=== PATIENT | female | born 1945 | race Caucasian/White ===

== ENCOUNTER → 2021-03-14 11:11 | Outpatient (CLI) | payer MEDICARE, OTHER, SELFPAY ==
[2021-03-14 13:13] LABS: COVID19 -Nasal RAPID Negative (Negative)
== END ==
PROVIDERS: Visit Provider Student in an Organized Health Care Education/Training Program
DX: Z20.822 Contact with and (suspected) exposure to COVID-19 (principal)
CPT/HCPCS: 87635; C9803

== ENCOUNTER → 2021-03-16 07:42 | Outpatient (CLI) | payer MEDICARE, OTHER, SELFPAY ==
--- NOTE | 2021-03-16 | DI.NM.S_ITS ---
PROCEDURE: NM TRACEY PERF SPECT R&S PHARM Rest and pharmacological stress myocardial perfusion SPECT with gated imaging and ejection fraction RADIOPHARMACEUTICAL: 9.5 mCi Tc-99m tetrafosmin IV at rest and 25.5 mCi Tc-99m tetrafosmin IV at peak effect of pharmacological stress. Qce-ygl-linpsydu was performed. INDICATIONS: chest pain TECHNIQUE: Radiopharmaceutical was injected at peak stress test, and also at rest. SPECT images were obtained. SPECT myocardial perfusion images were displayed in short axis, horizontal long axis, and vertical long axis views. Gated images were reviewed using [employer] software. COMPARISON: None. CARDIAC STRESS: A pharmacologic stress test was performed under the supervision of an attending staff, using an infusion of lexiscan 0.4mg IV X1. Hemodynamic data: There is normal blood pressure and heart rate response to pharmacologic stress. Symptoms: The patient had non diagnostic chest pain and dyspnea with lexiscan. Aminophylline: none EKG: No diagnostic changes of ischemia; no ectopy. FINDINGS: Raw data: There is good myocardial uptake of radiotracer. No significant motion artifacts. Suab-xt-zrrdf ratio is 0.26 (normal is less than 0.38 for tetrafosmin tracer). Left ventricle function: Gated images demonstrate normal left ventricular wall thickening. No segmental wall motion abnormalities. No transient ischemic dilation; TID is 1.13 (normal less than 1.3). Left ventricle resting end diastolic volume is 94 mL. Left ventricle stress ejection fraction is 74%; normal range is above 45%. Myocardial perfusion: There is normal distribution of activity in the right and left ventricular myocardium. No fixed or reversible perfusion defects. IMPRESSION: Low risk, pharmaceutical nuclear stress test. 1) No perfusion evidence of ischemia or infarction. 2) Normal left ventricular size, wall motion, and systolic function (EF post stress 74%). 3) No ECG evidence of ischemia. 4) Non-diagnostic chest pain with lexiscan. 5) No prior nuclear stress test available for comparison. Dictated by: Tariq Rodriguez MD on 03/16/2021 at 16:32 Approved by: Tariq Rodriguez MD on 03/16/2021 at 16:34
--- NOTE | 2021-03-16 11:43 | PM.TREADMILL ---
Cardiac Stress Test Report Referral & Results Date Patient Seen: 03/16/21 Time Patient Seen: 11:43 Requesting provider: Eddie Parker Indication: chest pain Rest ECG: Sinus bradycardia Procedure Note: After Lexiscan injection, had minimal dyspnea with 3-4/10 chest pressure/tightness which did not increase with walking and resolved with rest No significant ST changes after Lexiscan injection No ectopy Impression: Equivocal Lexiscan stress test Nuclear images pending Please note: Actual ECG tracings can be found in the PACS system.
== END ==
PROVIDERS: PCP Internal Medicine; Referring Provider Internal Medicine; Visit Provider Internal Medicine
DX: R07.89 Other chest pain (principal)
CPT/HCPCS: 78452; 93017; A9502; J2785

== ENCOUNTER 2023-04-26 15:44 | Emergency (ER) | payer MEDICARE, OTHER, SELFPAY ==
[2023-04-26 15:52] VITALS: BP 201/99; PULSE 95; RESP 20; TEMP 36.8; O2SAT 99; BMI 22.9
--- NOTE | 2023-04-26 15:58 | DI.RAD.S_ITS ---
PROCEDURE: XR ELBOW LT MIN 3V INDICATIONS: Fall elbow pain TECHNIQUE: 3 views of the elbow were acquired. COMPARISON: None. FINDINGS: Bones: Comminuted mildly displaced intra-articular fracture of the olecranon. No additional fractures or dislocation. Soft tissues: Large joint effusion and significant soft tissue swelling. IMPRESSION: Comminuted displaced intra-articular fracture of the olecranon. Dictated by: Barrington Petersen D.O. on 04/26/2023 at 15:29 Approved by: Barrington Petersen D.O. on 04/26/2023 at 15:29
--- NOTE | 2023-04-26 19:54 | ED_ITS ---
HPI - Extremity Injury (Upper) General Chief Complaint: Extremity Injury, Upper Stated Complaint: sent by [facility] possible broken elbow Time Seen by Provider: 04/26/23 18:45 Source: patient Mode of arrival: Ambulatory History of Present Illness HPI narrative: 77-year-old female nonsmoker without chronic medical history presents with her at the request of the urgent care on [facility]. She had gotten up from bed last night and tripped and fallen onto a left elbow and suffered pain and a very small laceration. She denies any head neck or back pain. She denies prodromal symptoms such as dizziness, weakness or lightheadedness. She is had no fever or chills and denies nausea, vomiting or diarrhea. Has increased pain with range of motion and improvement with rest. She was seen at the clinic and had 2 sutures placed in a small laceration overlying her elbow and an x-ray confirming fracture at which point she was sent here Related Data Previous Rx's Medication Instructions Recorded cephalexin 500 mg capsule 500 mg PO Q6H 7 days #28 caps 04/26/23 Allergies Allergy/AdvReac Type Severity Reaction Status Date / Time Opioids - Morphine Analogues AdvReac Confusion Verified 04/26/23 19:35 Review of Systems Review of Systems Narrative: GENERAL: Denies chills, fatigue, malaise, fever, sweats. HEENT: Denies sinus pain, ear pain, sore throat, difficulty swallowing, dizziness. RESPIRATORY: Denies dyspnea, cough, wheezing, hemoptysis, sputum. CARDIOVASCULAR: Denies chest pain, palpitations, orthopnea, edema, GASTROINTESTINAL: Denies nausea, vomiting, abdominal pain, diarrhea, constipation, melena. : Denies dysuria, frequency, incontinence, hematuria, urinary retention. MUSCULOSKELETAL: See HPI SKIN: See HPI NEUROLOGIC: Denies weakness, headache, numbness, change in speech, confusion, seizures, incoordination. PSYCHIATRIC: No concerning psychosocial issues. 12 point review of systems is negative except for those stated above Patient History Social History Smoking Status: Never smoker Smoking Status: Never smoker alcohol intake frequency: a few times a week Alcohol type: wine Substance Use Type: does not use Exam Narrative Exam Narrative: GENERAL: [77] year old patient appears stated age. Well-developed patient, in mild distress. GCS 15 HEAD: Atraumatic. Normocephalic. EYES: Pupils equal round and reactive. Extraocular motions intact. No scleral icterus. No injection or drainage. ENT: Nose without bleeding, purulent drainage. Throat without erythema, tonsillar hypertrophy or exudate. Airway patent. NECK: Trachea midline. Non tender CARDIOVASCULAR: Regular rate and rhythm without murmurs, gallops, or rubs. RESPIRATORY: Clear to auscultation. Breath sounds equal bilaterally. No wheezes, rales, or rhonchi. GASTROINTESTINAL: Abdomen soft, non-tender, nondistended. EXTREMITIES: No edema or joint tenderness. BACK: Nontender without deformity or crepitance. No flank tenderness. NEURO: AOx3. SKIN: No rash or erythema of visible areas Initial Vital Signs Initial Vital Signs: Vital Signs Temperature 98.3 F 04/26/23 15:52 Pulse Rate 95 H 04/26/23 15:52 Respiratory Rate 20 04/26/23 15:52 Blood Pressure 201/99 H 04/26/23 15:52 Pulse Oximetry 99 04/26/23 15:52 Oxygen Delivery Method Room Air 04/26/23 15:52 Procedures Orthopedic Splinting/Casting Injury #1: Side: left Upper Extremity Injury Location: elbow Upper Extremity Immobilizer: sling/shoulder immobilizer and posterior splint Post splinting neuro exam: intact Post splinting vascular exam: intact Placed by: Nursing Course Orders Ordered: Discontinued Medications Cefazolin Sodium (Cephalexin 250 Mg Cap Prepack) 1 bottle MISC SEEINSTR ONE Stop: 04/26/23 19:58 Last Admin: 04/26/23 20:13 Dose: 250 mg Documented By: GC Consultations Consultation #1: Discussed with on-call orthopedist, Dr. Falcon, she has reviewed imaging and recommends posterior OCL splint with sling, suggest patient call the office Friday morning will need surgical intervention, she can be NPO after midnight tomorrow night and clear liquids up until 8:00 a.m. on Friday Vital Signs Vital signs: Vital Signs - 8 hr 04/26/23 15:52 Temperature 98.3 F Pulse Rate 95 H Respiratory Rate 20 Blood Pressure 201/99 H Pulse Oximetry 99 Oxygen Delivery Method Room Air MDM - Extremity Injury (Upper) MDM Narrative Medical decision making narrative: [77] year old patient presents with elbow pain Multiple etiologies for patient's symptoms considered including, but not limited to: [Fracture versus dislocation versus open fracture versus other] Prior Charts reviewed in our EMR Primary Historian: patient Imaging reviewed: Elbow x-ray suggest olecranon fracture Consultations: Dr. Falcon see above Patient's symptoms improved over duration of stay with above-stated therapies. She has been splinted, pain is well controlled. Given the small laceration overlying the olecranon I did add antibiotics Findings and discharge diagnosis discussed with patient/family followed by verbalization of understanding Return precautions discussed with patient/family whom verbalize understanding of diagnosis and plan Discharge Plan Departure Patient Disposition: Home Clinical Impression: Fracture of olecranon process of ulna, Laceration of elbow Instructions: DI for Elbow Fracture Activity Restrictions/Additional Instructions: *You have been diagnosed with [ left elbow fracture with small laceration] *What to do: *Please continue to take your regular medications as directed. [x ] New medication prescriptions sent to your pharmacy: [[facility] ] [ ] New medication written as a paper prescription [x] Tylenol and occasional Motrin for pain *Please follow up with [ Ezekiel] of [facility]; please call Friday, let them know that you were seen in the Emergency Department. We will electronically transmit a record of today's note if your PCP is in our system *As we discussed, this could require surgery as soon as Friday so please do not eat or drink anything after midnight tomorrow night. You may have water or black coffee up until 0800am on Friday, but nothing else until you speak with the ortho office *Return to Emergency Department if you should have any new, worsening or concerning symptoms, such as [worsening pain, significant swelling, cold extremities, numbness, tingling, weakness or other bothersome symptoms Splint Care: Keep splint clean and dry. Elevated affected body part to decrease swelling. OK to use ice pack on the affected body part. Use for 15-20 minutes each time, for 5-6x per day. If you develop worsening pain, numbness, tingling, discoloration of the affected body part, loosen the splint by loosening the ANNABEL wrap, and either see your doctor for an urgent re-assessment, or return to the Emergency Department. Return to the Emergency Department for any new or worsening symptoms. Prescriptions: New cephalexin 500 mg capsule 500 mg PO Q6H 7 Days Qty: 28 0RF Referrals: Eddie Parker MD [Primary Care Provider] - Madeline Falcon MD [Physician] - Stand Alone Forms: Patient Portal/API
[2023-04-26] MEDS: cephALEXin 250 MG CAP PREPACK 1 BOTTLE MISC (20:13)
[2023-04-26 20:46] VITALS: BP 134/70; PULSE 66; RESP 16; TEMP 36.4; O2SAT 98
== END 2023-04-26 20:45 | disposition home or self-care (01) ==
PROVIDERS: Emergency Provider Emergency Medicine; PCP Internal Medicine
DX: S52.022A Displaced fracture of olecranon process without intraarticular extension of left ulna, initial encounter for closed fracture (principal); S51.012A Laceration without foreign body of left elbow, initial encounter; W01.0XXA Fall on same level from slipping, tripping and stumbling without subsequent striking against object, initial encounter
CPT/HCPCS: 29105; 73080; 99283

== ENCOUNTER → 2023-07-21 14:39 | Outpatient (CLI) | payer MEDICARE, OTHER, SELFPAY ==
--- NOTE | 2023-07-21 14:43 | DI.RAD.S_ITS ---
PROCEDURE: XR KNEE RT 4V INDICATIONS: joint pain TECHNIQUE: 4 views of the knee were acquired. COMPARISON: None. FINDINGS: Bones: No acute fracture or dislocation identified. Severe joint space narrowing and spurring of the medial and patellofemoral compartments. Moderate lateral compartment joint space narrowing and spurring also present. Soft tissues: No joint effusion. No suspicious soft tissue calcifications. IMPRESSION: No acute fracture or dislocation identified. 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 If symptoms persist, follow-up radiographs and/or CT or MRI may be helpful for further evaluation. Dictated by: Pipe Weldon M.D. on 07/21/2023 at 18:18 Approved by: Pipe Weldon M.D. on 07/21/2023 at 18:20
== END ==
PROVIDERS: PCP Internal Medicine; Referring Provider Internal Medicine; Visit Provider Internal Medicine
DX: M25.561 Pain in right knee (principal)
CPT/HCPCS: 73564

== ENCOUNTER 2023-08-11 12:26 | Observation (INO) | payer MEDICARE, OTHER, SELFPAY ==
[2023-08-11] VITALS (16 sets, daily range): BP systolic 145–188; BP diastolic 72–124; PULSE 71–97; RESP 14–24; TEMP 35.9–36.9; O2SAT 93–100; BMI 23.2
--- NOTE | 2023-08-11 12:49 | ED.GENADULT ---
HPI - General Adult General Chief complaint: Abdominal Pain Stated complaint: intestinal blockage Time Seen by Provider: 08/11/23 12:41 Source: patient Mode of arrival: Ambulatory History of Present Illness HPI narrative: 77-year-old female has had a history of bowel obstruction in the past requiring surgery and a colectomy. She is here for evaluation approximately 3 days of worsening abdominal distention that she states feels very similar to her prior bowel obstructions. No fevers. She is not passing flatus but is having some bowel incontinence. She is having urinary incontinence as well but this is not new for her. No vomiting. No fevers. Related Data Home Medications Medication Instructions Recorded Confirmed estradiol 0.5 mg tablet 0.5 mg PO DAILY 08/11/23 08/11/23 losartan 100 mg tablet 100 mg PO DAILY 08/11/23 08/11/23 nortriptyline 10 mg capsule 10 mg PO BEDTIME 08/11/23 08/11/23 thyroid (pork) 60 mg tablet (LATIN [employer] 60 mg PO DAILY 08/11/23 08/11/23 Thyroid) trospium 60 mg capsule,extended 60 mg PO DAILY 08/11/23 08/11/23 release 24 hr Allergies Allergy/AdvReac Type Severity Reaction Status Date / Time Opioids - Morphine Analogues AdvReac Confusion Verified 04/26/23 19:35 Review of Systems Constitutional Constitutional: Reports system reviewed and no additional complaints, except as documented Gastrointestinal Gastrointestinal: Reports system reviewed and no additional complaints, except as documented Genitourinary Genitourinary: Reports system reviewed and no additional complaints, except as documented Integumentary/Breasts Skin/Breast: Reports system reviewed and no additional complaints, except as documented Neurologic Neurologic: Reports system reviewed and no additional complaints, except as documented Hematologic/Lymphatic On Anticoagulants: No Patient History Social History Smoking Status: Never smoker Smoking Status: Never smoker alcohol intake frequency: a few times a week Alcohol type: wine Substance Use Type: does not use Exam Initial Vital Signs Initial Vital Signs: Vital Signs Temperature 98.5 F 08/11/23 12:30 Pulse Rate 97 H 08/11/23 12:30 Respiratory Rate 16 08/11/23 12:30 Blood Pressure 158/72 H 08/11/23 12:30 Pulse Oximetry 96 08/11/23 12:30 Oxygen Delivery Method Room Air 08/11/23 12:30 [facility] Head: normal to inspection and normocephalic Resp Effort & Inspection: normal respiratory effort GI Inspection: distended Palpation: firm, No guarding, No rigid and tender Skin Other: Patient does have gladis in her left elbow. She recently had a hardware removal. Neuro General: patient alert and patient awake Extrem General: capillary refill normal Course Orders Ordered: ED Orders 08/11/23 12:50 CT abdomen pelvis w con Stat 08/11/23 13:10 Complete Blood Count AUTO DIFF Stat Comprehensive Metabolic Panel Stat Lactate (Lactic Acid) Stat Lipase Stat 08/11/23 15:57 Consult to General Surgery Stat Sodium Chloride (Normal Saline 0.9%) 1,000 mls @ 125 mls/hr IV CONT ABIMAEL Last Admin: 08/11/23 13:13 Dose: 125 mls/hr Documented By: EDI Discontinued Medications Al Hydrox/Mg Hydrox/Simethicone 20 ml/ Lidocaine HCl 15 ml 0 ml PO NOW ONE Stop: 08/11/23 13:52 Last Admin: 08/11/23 14:19 Dose: 35 ml Documented By: GAIL Lidocaine HCl (Lidocaine 2% (Glydo) 6 Ml Gel) 6 ml TOP NOW ONE Stop: 08/11/23 17:42 Lorazepam (Lorazepam 1 Mg Tablet) 1 mg PO NOW ONE Stop: 08/11/23 17:42 Mineral Oil (Mineral Oil 1 Each Enema) 1 each NV NOW ONE Stop: 08/11/23 15:57 Last Admin: 08/11/23 16:50 Dose: 1 each Documented By: GAIL Pantoprazole Sodium (Pantoprazole 40 Mg Vial) 40 mg IV NOW ONE Stop: 08/11/23 13:51 Last Admin: 08/11/23 14:21 Dose: 40 mg Documented By: GAIL Vital Signs Vital signs: Vital Signs - 8 hr 08/11/23 12:30 08/11/23 13:21 08/11/23 13:30 Temperature 98.5 F Pulse Rate 97 H 91 H 84 Respiratory Rate 16 20 20 Blood Pressure 158/72 H Pulse Oximetry 96 100 100 Oxygen Delivery Method Room Air Room Air Room Air 08/11/23 14:00 08/11/23 14:27 08/11/23 14:27 Temperature Pulse Rate 75 79 Respiratory Rate 18 14 Blood Pressure 154/83 H Pulse Oximetry 100 99 Oxygen Delivery Method Room Air 08/11/23 14:30 08/11/23 14:30 08/11/23 14:50 Temperature Pulse Rate 74 88 Respiratory Rate 24 20 Blood Pressure 145/78 H Pulse Oximetry 98 99 Oxygen Delivery Method Room Air 08/11/23 14:50 08/11/23 14:51 08/11/23 14:51 Temperature Pulse Rate 82 Respiratory Rate 22 Blood Pressure 159/124 H 188/95 H Pulse Oximetry 100 Oxygen Delivery Method Room Air 08/11/23 15:00 08/11/23 15:00 08/11/23 15:30 Temperature Pulse Rate 79 Respiratory Rate 24 Blood Pressure 180/89 H 182/85 H Pulse Oximetry 99 Oxygen Delivery Method Room Air 08/11/23 15:30 Temperature Pulse Rate 75 Respiratory Rate 22 Blood Pressure Pulse Oximetry 99 Oxygen Delivery Method Room Air Medical Decision Making Lab Data Lab results reviewed: Yes I reviewed the patient's lab results. 08/11/23 13:10 08/11/23 13:10 Labs: Lab Results 08/11/23 08/11/23 08/11/23 Range/Units 13:10 13:10 13:10 WBC 6.9 (4.5-11.0) X10^3/uL RBC 3.85 L (4.0-5.2) X10^6/uL Hgb 10.9 L (12.0-16.0) g/dL Hct 32.7 L (36-46) % MCV 84.8 (80-100) fL MCH 28.2 (26-34) PG MCHC 33.3 (30-36) % RDW 18.1 H (11.6-14.8) % Plt Count 292 (150-400) X10^3/uL Neut % (Auto) 72.9 (50-75) % Lymph % (Auto) 19.0 L (25-40) % [place] % (Auto) 5.9 (3-14) % Eos % (Auto) 1.2 L (2-4) % Baso % (Auto) 1.0 (0-2) % Neut # (Auto) 5000 (5407-9069) /uL Lymph # (Auto) 1300 (1757-2058) /uL [place] # (Auto) 400 (0-900) /uL Eos # (Auto) 100 (0-450) /uL Baso # (Auto) 100 (0-100) /uL Sodium 137 (137-145) mmol/L Potassium 3.5 (3.4-5.1) mmol/L Chloride 101 (98-107) mmol/L Carbon Dioxide 28 (22-32) mmol/L BUN 13 (7-17) mg/dL Creatinine 0.75 (0.52-1.04) mg/dL Estimated GFR > 60 (>60) mL/min BUN/Creatinine Ratio 17.3 (6-22) Glucose 105 (80-110) mg/dL Lactate 2.1 (0.7-2.1) mmol/L Calcium 9.7 (8.4-10.2) mg/dL Total Bilirubin 0.6 (0.2-1.3) mg/dL AST 28 (14-36) IU/L ALT 25 (<35) IU/L Alkaline Phosphatase 81 (38-126) U/L Total Protein 8.1 (6.3-8.2) g/dL Albumin 4.4 (3.5-5.0) g/dL Globulin 3.7 (1.7-4.1) g/dL Albumin/Globulin Ratio 1.2 (1.0-2.8) Lipase 79 (23-300) U/L 08/11/23 Range/Units 15:24 WBC (4.5-11.0) X10^3/uL RBC (4.0-5.2) X10^6/uL Hgb (12.0-16.0) g/dL Hct (36-46) % MCV (80-100) fL MCH (26-34) PG MCHC (30-36) % RDW (11.6-14.8) % Plt Count (150-400) X10^3/uL Neut % (Auto) (50-75) % Lymph % (Auto) (25-40) % [place] % (Auto) (3-14) % Eos % (Auto) (2-4) % Baso % (Auto) (0-2) % Neut # (Auto) (4556-4124) /uL Lymph # (Auto) (0905-6562) /uL [place] # (Auto) (0-900) /uL Eos # (Auto) (0-450) /uL Baso # (Auto) (0-100) /uL Sodium (137-145) mmol/L Potassium (3.4-5.1) mmol/L Chloride (98-107) mmol/L Carbon Dioxide (22-32) mmol/L BUN (7-17) mg/dL Creatinine (0.52-1.04) mg/dL Estimated GFR (>60) mL/min BUN/Creatinine Ratio (6-22) Glucose (80-110) mg/dL Lactate 1.1 (0.7-2.1) mmol/L Calcium (8.4-10.2) mg/dL Total Bilirubin (0.2-1.3) mg/dL AST (14-36) IU/L ALT (<35) IU/L Alkaline Phosphatase (38-126) U/L Total Protein (6.3-8.2) g/dL Albumin (3.5-5.0) g/dL Globulin (1.7-4.1) g/dL Albumin/Globulin Ratio (1.0-2.8) Lipase (23-300) U/L Imaging Data CT scan - abdomen/pelvis: Radiologist's Impression: PROCEDURE:? CT ABDOMEN PELVIS W CON ? INDICATIONS:? Abdominal distention, concern for obstruction ? TECHNIQUE:? After the administration of intravenous contrast, axial sections acquired from the lung bases to the pubic symphysis.? Coronal and sagittal reformats were performed.? For radiation dose reduction, the following was used:? automated exposure control, adjustment of mA and/or kV according to patient size.? ? COMPARISON:? None. ? FINDINGS: Image quality:? Excellent.? ? Lung bases:? Lung bases are clear.? Heart size is normal. ? Solid organs:? Liver: The liver has no mass or intrahepatic biliary ductal dilatation. The portal vein and hepatic veins are patent.? Subcentimeter hypodensity of the right lobe is likely a cyst. Biliary: The gallbladder has no gallstones, pericholecystic fluid, gallbladder wall thickening, or surrounding inflammatory change. Pancreas: The pancreas has no mass or ductal dilatation. There is no surrounding inflammation. Spleen: Normal size. There are no masses. Adrenals: No hypertrophy or nodules. Kidneys: No obstructive calculus or hydronephrosis.? No solid mass. No cystic mass. ? Peritoneum and bowel:? Small hiatal hernia.? Diffuse distention of the small and large bowel is seen consistent with obstruction.? The transition point appears to be in the distal large bowel.? The large bowel has impacted stool in the rectum measuring 8 cm in diameter.? No free air or free fluid. ? Nodes and vessels:? No retroperitoneal or mesenteric adenopathy by size criteria.? Aorta and inferior vena cava are normal in size.? ? Miscellaneous:? No abdominal wall mass or hernia. ? PELVIS:? Genitourinary:? The bladder has no wall thickening or mass. No bladder calcifications. ? Bones:? No suspicious bony lesions.? No vertebral body compression fractures.? ? IMPRESSION: ? Severe fecal impaction with distention of the large and small bowel consistent with obstruction.? No evidence of volvulus. MDM Narrative Medical decision making narrative: Patient does have abdominal distention. Some nausea but no vomiting. She is having both fecal and urinary incontinence. She has a history of bowel obstruction in the past. Her CT scan today does show a distended bladder. This could be the cause of her urinary incontinence secondary to overflow. This could also be having to the obstipation that she is having. Urinary catheter was placed. She also has severe obstipation with what appears to be a proximal bowel obstruction from this. I discussed the case with Dr. Torres who reviewed the CT scan. He recommended admission to the hospital and frequent enemas until the patient can have bowel movements. I did discuss the case with Dr. Tiwari on-call for hospitalist Medicine who will admit for further evaluation and treatment. Patient was given a enema here in the emergency department. Discharge Plan Departure Patient Disposition: Home Clinical Impression: Obstipation
--- NOTE | 2023-08-11 12:50 | DI.CT.S_ITS ---
PROCEDURE: CT ABDOMEN PELVIS W CON INDICATIONS: Abdominal distention, concern for obstruction TECHNIQUE: After the administration of intravenous contrast, axial sections acquired from the lung bases to the pubic symphysis. Coronal and sagittal reformats were performed. For radiation dose reduction, the following was used: automated exposure control, adjustment of mA and/or kV according to patient size. COMPARISON: None. FINDINGS: Image quality: Excellent. Lung bases: Lung bases are clear. Heart size is normal. Solid organs: Liver: The liver has no mass or intrahepatic biliary ductal dilatation. The portal vein and hepatic veins are patent. Subcentimeter hypodensity of the right lobe is likely a cyst. Biliary: The gallbladder has no gallstones, pericholecystic fluid, gallbladder wall thickening, or surrounding inflammatory change. Pancreas: The pancreas has no mass or ductal dilatation. There is no surrounding inflammation. Spleen: Normal size. There are no masses. Adrenals: No hypertrophy or nodules. Kidneys: No obstructive calculus or hydronephrosis. No solid mass. No cystic mass. Peritoneum and bowel: Small hiatal hernia. Diffuse distention of the small and large bowel is seen consistent with obstruction. The transition point appears to be in the distal large bowel. The large bowel has impacted stool in the rectum measuring 8 cm in diameter. No free air or free fluid. Nodes and vessels: No retroperitoneal or mesenteric adenopathy by size criteria. Aorta and inferior vena cava are normal in size. Miscellaneous: No abdominal wall mass or hernia. PELVIS: Genitourinary: The bladder has no wall thickening or mass. No bladder calcifications. Bones: No suspicious bony lesions. No vertebral body compression fractures. IMPRESSION: Severe fecal impaction with distention of the large and small bowel consistent with obstruction. No evidence of volvulus. Dictated by: Luther Sierra M.D. on 08/11/2023 at 15:32 Approved by: Luther Sierra M.D. on 08/11/2023 at 15:39
[2023-08-11] MEDS: SODIUM CHLORIDE 0.9% 1,000 ML 125 ML IV ×2 (13:13→22:31)
[2023-08-11 13:23] LABS: Add Manual Diff / Slide Review NO; Basophils Absolute Auto 100 /uL (0-100); Eosinophils Absolute Auto 100 /uL (0-450); Eosinophils Percent Auto 1.2 % (2-4); Hematocrit 32.7 % (36-46); Hemoglobin 10.9 g/dL (12.0-16.0); Lymphocytes Absolute Auto 1300 /uL (1100-4500); Mean Corpuscular HGB Conc 33.3 % (30-36); Mean Corpuscular Hemoglobin 28.2 PG (26-34); Mean Corpuscular Volume 84.8 fL (80-100); Monocytes Absolute Auto 400 /uL (0-900); Monocytes Percent Auto 5.9 % (3-14); Neutrophils Absolute Auto 5000 /uL (1500-7000); Neutrophils Percent Auto 72.9 % (50-75); Platelet Count 292 X10^3/uL (150-400); Red Blood Cell Count 3.85 X10^6/uL (4.0-5.2); Red Cell Distribution Width 18.1 % (11.6-14.8); White Blood Cell Count 6.9 X10^3/uL (4.5-11.0)
[2023-08-11 13:28] LABS: Lactate (Lactic Acid) 2.1 mmol/L (0.7-2.1)
[2023-08-11 13:29] LABS: Alanine Aminotransferase 25 IU/L (<35); Albumin 4.4 g/dL (3.5-5.0); Albumin Globulin Ratio 1.2 (1.0-2.8); Alkaline Phosphatase 81 U/L (38-126); Aspartate Aminotransferase 28 IU/L (14-36); BUN Creatinine Ratio 17.3 (6-22); Bilirubin Total 0.6 mg/dL (0.2-1.3); Blood Urea Nitrogen 13 mg/dL (7-17); Calcium 9.7 mg/dL (8.4-10.2); Carbon Dioxide 28 mmol/L (22-32); Chloride 101 mmol/L (98-107); Estimated Glomerular Filt Rate > 60 mL/min (>60); Globulin 3.7 g/dL (1.7-4.1); Glucose 105 mg/dL (80-110); HEMOLYSIS 17 (0-50); Lipase 79 U/L (23-300); Potassium 3.5 mmol/L (3.4-5.1); Sodium 137 mmol/L (137-145); Total Protein 8.1 g/dL (6.3-8.2)
[2023-08-11] MEDS: MAG HYDROX/ALUMINUM/SIMETH SUS 20 ML, LIDOCAINE VISCOUS 2% 15 ML PO (14:19)
[2023-08-11] MEDS: PANTOPRAZOLE 40 MG VIAL IV (14:21)
[2023-08-11 15:12] LABS: Reflexed Lactate in 2 Hours Y
[2023-08-11 15:54] LABS: Lactate 2HR (Lactic Acid Rflx) 1.1 mmol/L (0.7-2.1)
[2023-08-11] MEDS: MINERAL OIL 1 EACH ENEMA PR (16:50)
[2023-08-11] MEDS: LIDOCAINE 2% (GLYDO) 6 ML GEL TOP (17:57)
[2023-08-11] MEDS: LORazepam 1 MG TABLET PO (17:57)
--- NOTE | 2023-08-11 18:44 | PM.HP.1 ---
History of Present Illness History of Present Illness Date Patient Seen: 08/11/23 Time Patient Seen: 18:44 Chief complaint: intestinal blockage Narrative: This is a 77 year old female with PMH of HTN, hypothroidism, GERD, urinary incontinence, history of prior large bowel obstruction with partial colectomy (etiology not entirely clear) who presented with 3 days of worsening abdominal distension and pain. Patient reports progressively increasing suprapubic pain that was constant and sharp. She also now has some sharp rectal pain when trying to defecate. She has not had a bowel movement in the previous 4 days, with decreasing frequency prior to that. She takes fiber supplements usually but no laxitive therapies. She reports no recent medication changes other than trying to cut down on home omeprazole use (now at 10 mg daily from 80 mg before). She denies nasuea, or vomiting. She has been tolerating a diet though appetite has been diminished. She denies any melena, hematochezia or hemetemesis. In the ER, CT imaging showed severe constipation. Discussed with general surgery as report of possible obstruction was noted on radiology read. They recommended aggressive laxitive therapies, no surgical interventions. She was admitted for further management. Blanco was placed as patient had difficulty voiding as well. She denies any dysuria or urinary frequency. [facility] Medical History (Updated 08/11/23 @ 18:45 by Reece Krueger DO) GERD (gastroesophageal reflux disease) HTN (hypertension) Hypothyroid Urinary incontinence Surgical History (Updated 08/11/23 @ 18:45 by Reece Krueger DO) History of abdominal surgery History of surgery on upper extremity Social History Smoking Status: Never smoker Meds Home Medications and Allergies Home Medications Medication Instructions Recorded Confirmed Type estradiol 0.5 mg tablet 0.5 mg PO DAILY 08/11/23 08/11/23 History losartan 100 mg tablet 100 mg PO DAILY 08/11/23 08/11/23 History nortriptyline 10 mg capsule 10 mg PO BEDTIME 08/11/23 08/11/23 History thyroid (pork) 60 mg tablet (STATE ARCHIVIST 60 mg PO DAILY 08/11/23 08/11/23 History Thyroid) trospium 60 mg capsule,extended 60 mg PO DAILY 08/11/23 08/11/23 History release 24 hr Allergies Allergy/AdvReac Type Severity Reaction Status Date / Time Opioids - Morphine Analogues AdvReac Confusion Verified 04/26/23 19:35 Review of Systems Review of Systems Narrative: All other systems reviewed with the patient and are negative unless otherwise stated. Exam Vital Signs (past 8 hours): - 08/11/23 12:30 08/11/23 13:21 08/11/23 13:30 Temperature 98.5 F Pulse Rate 97 H 91 H 84 Respiratory Rate 16 20 20 Blood Pressure 158/72 H Pulse Oximetry 96 100 100 Oxygen Delivery Method Room Air Room Air Room Air 08/11/23 14:00 08/11/23 14:27 08/11/23 14:27 Temperature Pulse Rate 75 79 Respiratory Rate 18 14 Blood Pressure 154/83 H Pulse Oximetry 100 99 Oxygen Delivery Method Room Air 08/11/23 14:30 08/11/23 14:30 08/11/23 14:50 Temperature Pulse Rate 74 88 Respiratory Rate 24 20 Blood Pressure 145/78 H Pulse Oximetry 98 99 Oxygen Delivery Method Room Air 08/11/23 14:50 08/11/23 14:51 08/11/23 14:51 Temperature Pulse Rate 82 Respiratory Rate 22 Blood Pressure 159/124 H 188/95 H Pulse Oximetry 100 Oxygen Delivery Method Room Air 08/11/23 15:00 08/11/23 15:00 08/11/23 15:30 Temperature Pulse Rate 79 Respiratory Rate 24 Blood Pressure 180/89 H 182/85 H Pulse Oximetry 99 Oxygen Delivery Method Room Air 08/11/23 15:30 08/11/23 16:00 08/11/23 18:21 Temperature Pulse Rate 75 81 Respiratory Rate 22 22 Blood Pressure 165/91 H Pulse Oximetry 99 93 Oxygen Delivery Method Room Air 08/11/23 18:21 Temperature Pulse Rate 72 Respiratory Rate Blood Pressure Pulse Oximetry 97 Oxygen Delivery Method Room Air Oxygen Delivery Method Room Air Narrative Exam Narrative: General:? Patient is well developed and well nourished, in no distress at this time. HEENT:? Normocephalic, atraumatic, extraocular muscles intact, oral pharynx is clear and mucous membranes are moist. Neck: supple and symmetric, trachea is midline, no cervical adenopathy. Negative for JVD Chest:? Normal AP diameter and contour without kyphoscoliosis, no tachypnea, equal chest rise bilaterally. Lungs:? CTA b/l no wheezing rhonchi or rales. Cardio:?RRR no m/r/g. Abdomen: soft with mild distension, diffuse mild tenderness. Musculoskeletal:? Muscle strength and tone are equal within normal limits, no deformity. Extremities: No edema or joint effusions. No cyanosis or clubbing. Skin:? Pale,? Warm to touch,dry and intact without rashes, ulcerations or petechiae.? Neuro:? Alert and orientated, defers some questions to her , some difficulty with memory evident.? sensation to touch intact in all extremities, no gross deficits noted of cranial nerves. Psych:? Patient has a well-kept appearance, appropriate affect, mental status attitude thought context and judgment are appropriate for age. Objective Labs 08/11/23 13:10 08/11/23 13:10 Labs: Laboratory Results - last 24 hr 08/11/23 08/11/23 08/11/23 13:10 13:10 13:10 WBC 6.9 RBC 3.85 L Hgb 10.9 L Hct 32.7 L MCV 84.8 MCH 28.2 MCHC 33.3 RDW 18.1 H Plt Count 292 Neut % (Auto) 72.9 Lymph % (Auto) 19.0 L [place] % (Auto) 5.9 Eos % (Auto) 1.2 L Baso % (Auto) 1.0 Neut # (Auto) 5000 Lymph # (Auto) 1300 [place] # (Auto) 400 Eos # (Auto) 100 Baso # (Auto) 100 Sodium 137 Potassium 3.5 Chloride 101 Carbon Dioxide 28 BUN 13 Creatinine 0.75 Estimated GFR > 60 BUN/Creatinine Ratio 17.3 Glucose 105 Lactate 2.1 Calcium 9.7 Total Bilirubin 0.6 AST 28 ALT 25 Alkaline Phosphatase 81 Total Protein 8.1 Albumin 4.4 Globulin 3.7 Albumin/Globulin Ratio 1.2 Lipase 79 08/11/23 15:24 WBC RBC Hgb Hct MCV MCH MCHC RDW Plt Count Neut % (Auto) Lymph % (Auto) [place] % (Auto) Eos % (Auto) Baso % (Auto) Neut # (Auto) Lymph # (Auto) [place] # (Auto) Eos # (Auto) Baso # (Auto) Sodium Potassium Chloride Carbon Dioxide BUN Creatinine Estimated GFR BUN/Creatinine Ratio Glucose Lactate 1.1 Calcium Total Bilirubin AST ALT Alkaline Phosphatase Total Protein Albumin Globulin Albumin/Globulin Ratio Lipase Assessment & Plan Assessment & Plan narrative: 1. Obstipation with associated urinary retention - CT scan without findings of necrosis or colitis. Labs are also reassuring. - Aggressive laxitive therapy ordered including senna, bisacodyl, BID miralax and colace. Also enemas as needed. - if no improvement with above therapies, try disimpaction - discussed with general surgery as noted above, no surgical interventions recommended at this time. 2. HTN, chronic - continue home medications including losartan 3. hypothyroid, chronic - continue home pork thyroid, check TSH given severity of constipation to see if contributing. 4. GERD - continue home 10 mg PPI, will sub with pantoprazole. 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 Dispo: observation, dispo pending improvement in constipation with above management. Additional history was obtained via patient's spouse and ER provider. Discussed plan and management with general surgeon as noted above. I have reviewed patient's previous documentation, imaging, labs personally.
[2023-08-11] MEDS: MAGNESIUM HYDROXIDE 30 ML UDC PO (18:55)
[2023-08-11] MEDS: BISACODYL 5 MG TABLET 10 MG PO (18:55)
[2023-08-11] MEDS: DOCUSATE 100 MG CAPSULE PO (21:35)
[2023-08-11] MEDS: SENNOSIDES 8.6 MG TABLET 17.2 MG PO (21:35)
[2023-08-11] MEDS: polyethylene glycoL 3350 17 GM POWD.PACK PO (21:35)
[2023-08-11] MEDS: NORTRIPTYLINE 10 MG CAPSULE PO (21:35)
[2023-08-11] MEDS: LOSARTAN 50 MG TABLET 100 MG PO (23:14)
[2023-08-12] VITALS (12 sets, daily range): BP systolic 143–169; BP diastolic 78–101; PULSE 73–81; RESP 18–20; TEMP 35.6–37.1; O2SAT 97–100
[2023-08-12 05:47] LABS: Add Manual Diff / Slide Review NO; Basophils Absolute Auto 0 /uL (0-100); Basophils Percent Auto 0.7 % (0-2); Eosinophils Absolute Auto 200 /uL (0-450); Eosinophils Percent Auto 3.2 % (2-4); Hemoglobin 9.1 g/dL (12.0-16.0); Lymphocytes Absolute Auto 1700 /uL (1100-4500); Lymphocytes Percent Auto 35.3 % (25-40); Mean Corpuscular HGB Conc 33.8 % (30-36); Mean Corpuscular Hemoglobin 28.4 PG (26-34); Mean Corpuscular Volume 84.2 fL (80-100); Monocytes Absolute Auto 400 /uL (0-900); Monocytes Percent Auto 7.8 % (3-14); Neutrophils Absolute Auto 2500 /uL (1500-7000); Platelet Count 235 X10^3/uL (150-400); White Blood Cell Count 4.8 X10^3/uL (4.5-11.0)
[2023-08-12 06:01] LABS: BUN Creatinine Ratio 15.6 (6-22); Blood Urea Nitrogen 10 mg/dL (7-17); Calcium 8.4 mg/dL (8.4-10.2); Carbon Dioxide 25 mmol/L (22-32); Chloride 107 mmol/L (98-107); Estimated Glomerular Filt Rate > 60 mL/min (>60); Glucose 96 mg/dL (80-110); HEMOLYSIS < 15 (0-50); Magnesium 2.2 mg/dL (1.6-2.3); Potassium 3.4 mmol/L (3.4-5.1); Sodium 136 mmol/L (137-145)
[2023-08-12] MEDS: PANTOPRAZOLE DR 20 MG TABLET 10 MG PO (06:25)
[2023-08-12] MEDS: SODIUM CHLORIDE 0.9% 1,000 ML 125 ML IV (06:27)
[2023-08-12 06:29] LABS: TSH w/ Reflex to FT4 1.26 uIU/mL (0.47-4.68)
[2023-08-12] MEDS: BISACODYL 5 MG TABLET 10 MG PO (08:44)
[2023-08-12] MEDS: polyethylene glycoL 3350 17 GM POWD.PACK PO (08:44)
[2023-08-12] MEDS: MAGNESIUM HYDROXIDE 30 ML UDC PO (08:44)
[2023-08-12] MEDS: ENOXAPARIN 40 MG/0.4 ML SYRINGE SUBCUT (08:45)
[2023-08-12] MEDS: DOCUSATE 100 MG CAPSULE PO (08:45)
--- NOTE | 2023-08-12 10:55 | CM.DANOTE ---
DCP Assessment Note: Patient is a 77yo female here following potential intestinal blockage/constipation. PCP Elena Lucero Medicare and [facility] for [facility] [employer] reviewed EMR. Per nursing staff, patient is up and moving. [employer] entered room and introduced self and role. Patient appeared A/Ox4 and was accompanied by spouse Augustine ([phone]) at bedside. Patient reports having recent very large bowel movement, and is hopeful things are moving in the right direction. Patient reports being A/I/Drives at baseline and uses no DME. Patient's spouse is a retired provider. Patient reports likely having no needs from CM team upon d/c. Plan: d/c home with spouse when medically stable. Transport with spouse in POV. No needs identified at this time. CM team will continue to follow as needed. MIRIAM Dupont Discharge Planning/Care Management CM Discharge Assessment Start: 08/12/23 10:54 Freq: Status: Active Protocol: Document 08/12/23 10:54 (Rec: 08/12/23 10:55 [id number]) Discharge Planning Assessment Assigned Irrigation Manager MIRIAM Saucedo DPOA/Assigned Designee Name Augustine (spouse) Contact Information [phone] Advance Directives? No History Provided By Patient,Medical Record Prior Living Arrangements House Household Members spouse Type of transporation used prior to Drives own vehicle admit Independent with ADL's Yes Is patient alert and oriented? Yes Discharge Plan Home Transportation Arrangement spouse in POV Whiteboard Updated in Patient Room with Yes name and ext. # of Irrigation Manager Review Status In Process Next Review Type Continued Stay Review
[2023-08-12] MEDS: POTASSIUM CHLORIDE 20 MEQ TAB 40 MEQ PO (11:59)
[2023-08-12] MEDS: PHENYLEPH/MINERAL OIL/PETROLAT 57 GM OINT 1 APPLIC PR (13:39)
--- NOTE | 2023-08-12 13:42 | P.PN_ITS ---
Subjective Subjective Interval history: Patient had a very large bowel movement this morning. Remains painful with defecation and still feels like she is having difficulty. Abdomen is a bit bloated still, tolerating somewhat of a diet. Exam Vital Signs (past 8 hours): - 08/12/23 06:00 08/12/23 08:00 08/12/23 12:00 Temperature 98.4 F 98.2 F Pulse Rate 74 81 Respiratory Rate 18 20 Blood Pressure 150/82 H 157/82 H Pulse Oximetry 99 97 97 Oxygen Delivery Method Room Air Oxygen Delivery Method Room Air Oxygen Flow Rate 0 Narrative Exam Narrative: General:? Patient is well developed and well nourished, in no distress at this time. HEENT:? Normocephalic, atraumatic, extraocular muscles intact, oral pharynx is clear and mucous membranes are moist. Neck: supple and symmetric, trachea is midline, no cervical adenopathy. Negative for JVD Chest:? Normal AP diameter and contour without kyphoscoliosis, no tachypnea, eq ual chest rise bilaterally. Lungs:? CTA b/l no wheezing rhonchi or rales. Cardio:?RRR no m/r/g. Abdomen: soft with mild distension though improved, diffuse mild tenderness also improved. Musculoskeletal:? Muscle strength and tone are equal within normal limits, no deformity. Extremities: No edema or joint effusions. No cyanosis or clubbing. Skin:? Pale,? Warm to touch,dry and intact without rashes, ulcerations or petechiae.? Neuro:? Alert and orientated, defers some questions to her , some difficulty with memory evident.? sensation to touch intact in all extremities, no gross deficits noted of cranial nerves. Psych:? Patient has a well-kept appearance, appropriate affect, mental status attitude thought context and judgment are appropriate for age. Objective Labs 08/12/23 05:10 08/12/23 05:10 Labs: Laboratory Results - last 24 hr 08/11/23 08/12/23 08/12/23 15:24 05:10 05:10 WBC 4.8 RBC 3.20 L Hgb 9.1 L Hct 27.0 L MCV 84.2 MCH 28.4 MCHC 33.8 RDW 18.0 H Plt Count 235 Neut % (Auto) 53.0 Lymph % (Auto) 35.3 [place] % (Auto) 7.8 Eos % (Auto) 3.2 Baso % (Auto) 0.7 Neut # (Auto) 2500 Lymph # (Auto) 1700 [place] # (Auto) 400 Eos # (Auto) 200 Baso # (Auto) 0 Sodium 136 L Potassium 3.4 Chloride 107 Carbon Dioxide 25 BUN 10 Creatinine 0.64 Estimated GFR > 60 BUN/Creatinine Ratio 15.6 Glucose 96 Lactate 1.1 Calcium 8.4 Magnesium 2.2 TSH 08/12/23 05:10 WBC RBC Hgb Hct MCV MCH MCHC RDW Plt Count Neut % (Auto) Lymph % (Auto) [place] % (Auto) Eos % (Auto) Baso % (Auto) Neut # (Auto) Lymph # (Auto) [place] # (Auto) Eos # (Auto) Baso # (Auto) Sodium Potassium Chloride Carbon Dioxide BUN Creatinine Estimated GFR BUN/Creatinine Ratio Glucose Lactate Calcium Magnesium TSH 1.26 [facility] Medical History (Updated 08/11/23 @ 18:45 by Reece Krueger DO) GERD (gastroesophageal reflux disease) HTN (hypertension) Hypothyroid Urinary incontinence Surgical History (Updated 08/11/23 @ 18:45 by Reece Krueger DO) History of abdominal surgery History of surgery on upper extremity Social History household members: spouse Smoking Status: Never smoker alcohol intake: current Assessment & Plan Assessment & Plan narrative: 1. Obstipation with associated urinary retention - CT scan without findings of necrosis or colitis. Labs are also reassuring. - Aggressive laxitive therapy ordered including senna, bisacodyl, BID miralax and colace. Also enemas as needed. She has had multiple large bowel movements today but remains mildly distended with some pain. Possibly still with large fecal burden still. - discussed with general surgery as noted above, no surgical interventions recommended at this time. - can trial discontinuation of dominguez after bowel movements today. 2. HTN, chronic - continue home medications including losartan 3. hypothyroid, chronic - continue home pork thyroid, checked TSH given severity of constipation to see if contributing but this was normal at 1.26. 4. GERD - continue home 10 mg PPI, will sub with pantoprazole. 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 Dispo: observation, dispo pending improvement in constipation with above management. Additional history was obtained via patient's spouse and ER provider. Discussed plan and management with general surgeon as noted above. I have reviewed patient's previous documentation, imaging, labs personally. Quality VTE Deep Vein Thrombosis/Pulmonary Embolism Present on Admission: No
[2023-08-12] MEDS: NORTRIPTYLINE 10 MG CAPSULE PO (20:02)
[2023-08-12] MEDS: LOSARTAN 50 MG TABLET 100 MG PO (20:03)
[2023-08-12] MEDS: SODIUM CHLORIDE 0.9% FLUSH 10 ML IV (22:35)
[2023-08-13 01:30] VITALS: BP 171/86; PULSE 75; RESP 18; TEMP 37.1; O2SAT 99
[2023-08-13 02:00] VITALS: O2SAT 99
[2023-08-13 04:00] VITALS: BP 169/96; PULSE 87; RESP 16; TEMP 36; O2SAT 99
--- NOTE | 2023-08-13 04:36 | PC.NURSE ---
Text message sent to Dr. Engel to notify patient blood pressure was elevated since admit. Awaiting response, will monitor & continue plan of care.
[2023-08-13 05:48] LABS: Add Manual Diff / Slide Review NO; Basophils Absolute Auto 0 /uL (0-100); Basophils Percent Auto 1.2 % (0-2); Eosinophils Absolute Auto 300 /uL (0-450); Eosinophils Percent Auto 6.6 % (2-4); Hematocrit 29.6 % (36-46); Hemoglobin 9.7 g/dL (12.0-16.0); Lymphocytes Absolute Auto 1600 /uL (1100-4500); Lymphocytes Percent Auto 42.7 % (25-40); Mean Corpuscular HGB Conc 32.7 % (30-36); Mean Corpuscular Volume 85.9 fL (80-100); Monocytes Absolute Auto 300 /uL (0-900); Monocytes Percent Auto 8.9 % (3-14); Neutrophils Absolute Auto 1500 /uL (1500-7000); Neutrophils Percent Auto 40.6 % (50-75); Platelet Count 255 X10^3/uL (150-400); Red Blood Cell Count 3.44 X10^6/uL (4.0-5.2); Red Cell Distribution Width 18.1 % (11.6-14.8); White Blood Cell Count 3.8 X10^3/uL (4.5-11.0)
[2023-08-13 05:59] LABS: BUN Creatinine Ratio 9.2 (6-22); Blood Urea Nitrogen 6 mg/dL (7-17); Calcium 8.5 mg/dL (8.4-10.2); Carbon Dioxide 24 mmol/L (22-32); Chloride 110 mmol/L (98-107); Estimated Glomerular Filt Rate > 60 mL/min (>60); Glucose 88 mg/dL (80-110); HEMOLYSIS < 15 (0-50); Magnesium 2.2 mg/dL (1.6-2.3); Potassium 3.5 mmol/L (3.4-5.1); Sodium 137 mmol/L (137-145)
[2023-08-13 06:00] VITALS: O2SAT 99
[2023-08-13] MEDS: THYROID, PORK 30 MG TABLET 60 MG PO (06:01)
[2023-08-13] MEDS: PANTOPRAZOLE DR 20 MG TABLET 10 MG PO (06:02)
--- NOTE | 2023-08-13 07:06 | PC.NURSE ---
Pt. denied any chest pain, headache & other discomfort this morning. States I'm just very tired & still very sleepy. Will report to day RN.
[2023-08-13 07:30] VITALS: O2SAT 98
[2023-08-13 08:00] VITALS: BP 163/88; PULSE 66; RESP 16; TEMP 37.1; O2SAT 98
--- NOTE | 2023-08-13 09:01 | P.DS_ITS ---
History of Present Illness History of Present Illness Date Patient Seen: 08/13/23 Time Patient Seen: 09:02 Chief complaint: intestinal blockage Narrative: This is a 77 year old female with PMH of HTN, hypothroidism, GERD, urinary incontinence, history of prior large bowel obstruction with partial colectomy (etiology not entirely clear) who presented with 3 days of worsening abdominal distension and pain. Patient reports progressively increasing suprapubic pain that was constant and sharp. She also now has some sharp rectal pain when trying to defecate. She has not had a bowel movement in the previous 4 days, with decreasing frequency prior to that. She takes fiber supplements usually but no laxitive therapies. She reports no recent medication changes other than trying to cut down on home omeprazole use (now at 10 mg daily from 80 mg before). She denies nasuea, or vomiting. She has been tolerating a diet though appetite has been diminished. She denies any melena, hematochezia or hemetemesis. In the ER, CT imaging showed severe constipation. Discussed with general surgery as report of possible obstruction was noted on radiology read. They recommended aggressive laxitive therapies, no surgical interventions. She was admitted for further management. Blanco was placed as patient had difficulty voiding as well. She denies any dysuria or urinary frequency. Discharge Providers Provider Date of admission: 08/11/23 17:04 Discharge Date: 08/13/23 Primary care physician: Eddie Parker MD Consults: 08/11/23 15:57 Consult to General Surgery Stat Comment: Consulting Provider: Alejandro Torres Reason for consultation: bowel obstrucion Has provider been notified: Yes Discharge provider: Reece Krueger DO Summary Hospital Course Discharge Diagnosis: 1. Obstipation with associated urinary retention 2. HTN, chronic 3. hypothyroid, chronic 4. GERD Hospital Course: This is a 77 year old female admitted for severe obstipation. She had a number of large bowel movements with initiation of laxitive therapies, ultimately improved with improvement in bloating and abdominal pain. TSH was checked and was unremarkable. No changes to her home medications are recommended on discharge. She was recommended to continue colace and fiber supplemetation with laxative therapies if no bowel movements for 1-2 days. She also noted improvement in her urinary incontinence symptoms after multiple bowel movements. Initially due to difficulty voiding, catheter was placed but was able to be removed prior to discharge. Time Spent with Patient Time spent: Less than 30 minutes Exam Vital Signs (past 8 hours): - 08/13/23 01:30 08/13/23 02:00 08/13/23 06:00 Temperature 98.7 F Pulse Rate 75 Respiratory Rate 18 Blood Pressure 171/86 H Pulse Oximetry 99 99 99 Oxygen Delivery Method Room Air Room Air Oxygen Flow Rate 0 08/13/23 04:00 08/13/23 08:00 Temperature 96.8 F L 98.7 F Pulse Rate 87 66 Respiratory Rate 16 16 Blood Pressure 169/96 H 163/88 H Pulse Oximetry 99 98 Oxygen Delivery Method Oxygen Flow Rate 0 0 Oxygen Delivery Method Room Air Oxygen Flow Rate 0 Narrative Exam Narrative: General:? Patient is well developed and well nourished, in no distress at this time. Abdomen: S NT ND Neuro:? Alert and orientated, no gross deficits noted of cranial nerves. Psych:? Patient has a well-kept appearance, appropriate affect, mental status attitude thought context and judgment are appropriate for age. Objective Labs 08/13/23 05:05 08/13/23 05:05 Labs: Laboratory Results - last 24 hr 08/13/23 08/13/23 05:05 05:05 WBC 3.8 L RBC 3.44 L Hgb 9.7 L Hct 29.6 L MCV 85.9 MCH 28.0 MCHC 32.7 RDW 18.1 H Plt Count 255 Neut % (Auto) 40.6 L Lymph % (Auto) 42.7 H [place] % (Auto) 8.9 Eos % (Auto) 6.6 H Baso % (Auto) 1.2 Neut # (Auto) 1500 Lymph # (Auto) 1600 [place] # (Auto) 300 Eos # (Auto) 300 Baso # (Auto) 0 Sodium 137 Potassium 3.5 Chloride 110 H Carbon Dioxide 24 BUN 6 L Creatinine 0.65 Estimated GFR > 60 BUN/Creatinine Ratio 9.2 Glucose 88 Calcium 8.5 Magnesium 2.2 PFSH Medical History (Updated 08/11/23 @ 18:45 by Reece Krueger DO) GERD (gastroesophageal reflux disease) HTN (hypertension) Hypothyroid Urinary incontinence Surgical History (Updated 08/11/23 @ 18:45 by Reece Krueger DO) History of abdominal surgery History of surgery on upper extremity Social History household members: spouse Smoking Status: Never smoker alcohol intake: current Discharge Plan Discharge Plan Patient Disposition: Home Provider Discharge Comment: You were admitted to the hospital with constipation. Continue to take your fiber supplements at home, you can add docustate which I would take once a day. If no bowel movements for 1-2 days then start adding la xitive therapies including miralax or senna. No prescription changes recommended at discharge. Discharge orders & Medications Prescriptions: Continued nortriptyline 10 mg capsule 10 mg PO BEDTIME estradiol 0.5 mg tablet 0.75 mg PO QAM losartan 100 mg tablet 100 mg PO BEDTIME trospium 60 mg capsule,extended release 24hr 60 mg PO QAM thyroid (pork) [OBSTETRICS GYNECOLOGY PHYSICIAN Thyroid] 60 mg tablet 60 mg PO DAILY primidone 50 mg tablet 25 mg PO QAM progesterone micronized 200 mg capsule 200 mg PO BEDTIME prasterone (dhea) [DHEA] 25 mg Tablet 25 mg PO QAM omeprazole magnesium [Prilosec OTC] 20 mg Tablet,Delayed Release (Dr/Ec) 10 mg PO QAM magnesium glycinate 100 mg Tablet 500 mg PO QAM PRN (Reason: Supplement) cholecalciferol (vitamin D3) [Vitamin D3] 125 mcg (5,000 unit) Tablet 125 mcg PO BEDTIME PRN (Reason: Supplement) Follow up/Referrals: Eddie Parker MD [Primary Care Provider] - Diet/Activity/Treatments Diet: Diet as Tolerated and Regular Activity: As tolerated no restrictions. Visit Report/Discharge Packet Instructions: DI for Fecal Impaction Stand Alone Forms: Patient Portal/API, Stroke Signs & Symptoms Discharge Data Primary Care Provider: Eddie Parker Attending Provider: Reece Krueger Admit Date/Time: 08/11/23 17:04 Discharges patient from system. Discharge Date/Time: 08/13/23 10:45 Quality VTE Deep Vein Thrombosis/Pulmonary Embolism Present on Admission: No
--- NOTE | 2023-08-13 11:54 | PC.NURSE ---
Discharge: pt and spouse feel ready to go home. Pt reports several more bm's overnight. Seen by MD and given d/c instructions. Reviewed d/c packet. Has no new scripts. Questions answered. D/c to home via auto w/spouse.
== END 2023-08-13 10:45 | disposition home or self-care (01) ==
LOC: ED 17:04 → AC 17:05
PROVIDERS: Admitting Provider Internal Medicine; Emergency Provider Emergency Medicine; PCP Internal Medicine; Referring Provider Emergency Medicine; Visit Provider Internal Medicine
DX: R14.0 Abdominal distension (gaseous) (principal); Z90.49 Acquired absence of other specified parts of digestive tract; I10 Essential (primary) hypertension; E03.9 Hypothyroidism, unspecified; K21.9 Gastro-esophageal reflux disease without esophagitis; R33.9 Retention of urine, unspecified; K59.00 Constipation, unspecified
CPT/HCPCS: 36415; 74177; 80048; 80053; 83605; 83690; 83735; 84443; 85025; 96361; 96374; 99284; 99285; G0378; C9113; J1650; Q9967

== ENCOUNTER → 2023-09-18 15:28 | Outpatient (CLI) | payer MEDICARE, OTHER, SELFPAY ==
[2023-08-11 17:26] VITALS: BMI 23.2
--- NOTE | 2023-09-18 | DI.RAD.S_ITS ---
PROCEDURE: XR KNEE RT 3V INDICATIONS: bilateral primary osteoarthritis of knee TECHNIQUE: 3 views of the right knee were acquired. COMPARISON: [facility], , XR KNEE RT 4V, 07/21/2023, 14:59. FINDINGS: Bones: Severe right knee medial and patellofemoral compartment osteoarthritis with joint space narrowing, subchondral sclerosis and osseous hypertrophy. Moderate right knee lateral compartment osteoarthritis with osseous hypertrophy and slight joint space narrowing. Soft tissues: No joint effusion. No suspicious soft tissue calcifications. IMPRESSION: Right knee tricompartmental osteoarthritis as described above. Dictated by: Bharti Tyson MD, PhD on 09/18/2023 at 16:03 Approved by: Bharti Tyson MD, PhD on 09/18/2023 at 16:05
== END ==
PROVIDERS: PCP Internal Medicine; Referring Provider Internal Medicine; Visit Provider Internal Medicine
DX: M17.0 Bilateral primary osteoarthritis of knee (principal)
CPT/HCPCS: 73562